=== PATIENT | male | born 1975 | race Caucasian/White ===

== ENCOUNTER 2017-03-31 09:06 | Day surgery (SDC) | payer BC ==
[~2017-03-31 09:06] MED LIST: Lactated Ringers 1,000 ML IV SCH; Midazolam 1 MG/ML 2 ML SDV ONE; Propofol 200 MG/20 ML SDV ONE; fentaNYL 100 MCG/2 ML SDV ONE
--- NOTE | 2017-03-31 09:28 | PCM.PREANE ---
Preanesthetic Assessment - Anesthesia/Transfusion/Family Hx Anesthesia History: Prior Anesthesia Without Reaction Family History of Anesthesia Reaction: No Transfusion History: No Prior Transfusion(s) Intubation History: Unknown - Review of Systems General: No Symptoms Pulmonary: No Symptoms Cardiovascular: No Symptoms Gastrointestinal: No Symptoms, Other (colonoscopy 8 years ago was normal) Neurological: No Symptoms Other: Reports: None - Physical Assessment O2 Sat by Pulse Oximetry: 95 Respiratory Rate: 16 Vital Signs: Last Vital Signs Temp 36.3 C 03/31/17 09:12 Pulse 76 03/31/17 09:12 Resp 16 03/31/17 09:12 BP 126/80 03/31/17 09:12 Pulse Ox 95 03/31/17 09:12 Height: 1.78 m Weight: 127.006 kg ASA Class: 2 Mental Status: Alert & Oriented x3 Airway Class: Mallampati = 2 Dentition: Reports: Normal Dentition, Broken Tooth/Teeth (small chip up front tooth) Thyro-Mental Finger Breadths: 3 Mouth Opening Finger Breadths: 2 ROM/Head Extension: Limited/Partial Lungs: Clear to Auscultation, Normal Respiratory Effort Cardiovascular: Regular Rate, Regular Rhythm - Allergies Allergies/Adverse Reactions: Allergies Allergy/AdvReac Type Severity Reaction Status Date / Time No Known Allergies Allergy Verified 03/28/17 11:59 - Blood Blood Available: No - Anesthesia Plan Pre-Op Medication Ordered: None - Acknowledgements Anesthesia Type Planned: MAC Pt an Appropriate Candidate for the Planned Anesthesia: Yes Alternatives and Risks of Anesthesia Discussed w Pt/Guardian: Yes Pt/Guardian Understands and Agrees with Anesthesia Plan: Yes PreAnesthesia Questionnaire HEENT History: Reports: Other (See Below) Other HEENT History: glasses Musculoskeletal History: Reports: Fracture Other Musculoskeletal History: hx fx collarbone Psychiatric History: Reports: Depression Endocrine/Metabolic History: Reports: Obesity/BMI 30+ (BMI 40.2) - Past Surgical History Head Surgeries/Procedures: Reports: None HEENT Surgical History: Reports: Adenoidectomy, Tonsillectomy GI Surgical History: Reports: Colonoscopy (8 years ago), Hernia, Abdominal ( umbilical with mesh) Other GI Surgeries/Procedures: hx umbilical hernia repair - SUBSTANCE USE Smoking Status *Q: Light Tobacco Smoker (4-5 cigarettes per day) Tobacco Use Within Last Twelve Months: Cigarettes Recreational Drug Use History: No - HOME MEDS Home Medications: Home Meds Clotrimazole/Betamethasone Dip [Lotrisone Cream] 1 applic TOP ASDIRECTED PRN [History] Venlafaxine [Venlafaxine HCl ER] 150 mg PO DAILY 03/28/17 [History] - CURRENT (IN HOUSE) MEDS Current Meds: Current Medications Lactated Ringer's (Ringers, Lactated) 1,000 mls @ 125 mls/hr IV ASDIRECTED PORFIRIO Last Admin: 03/31/17 09:16 Dose: 125 mls/hr Discontinued Medications Fentanyl (Sublimaze) Confirm Administered Dose 100 mcg .ROUTE .STK-MED ONE Stop: 03/31/17 07:06 Lidocaine HCl (Xylocaine-Mpf 1%) Confirm Administered Dose 5 ml .ROUTE .STK-MED ONE Stop: 03/31/17 07:06 Midazolam HCl (Versed 1 Mg/Ml) Confirm Administered Dose 2 mg .ROUTE .STK-MED ONE Stop: 03/31/17 07:06 Propofol (Diprivan 20 Ml) Confirm Administered Dose 200 mg .ROUTE .STK-MED ONE Stop: 03/31/17 07:06
[2017-03-31] MEDS ORDERED: Propofol 200 MG/20 ML SDV ONE (10:16)
--- NOTE | 2017-03-31 10:38 | PCM.OPNOTE ---
- General Post-Op/Procedure Note Date of Surgery/Procedure: 03/31/17 Operative Procedure(s): Colonoscopy with cold cecal and rectal polypectomies Pre Op Diagnosis: Family history of colon cancer Post-Op Diagnosis: Cecal and rectal polyps Anesthesia Technique: MAC (ASA II) Primary Surgeon: Yao Alan Condition: Good Free Text/Narrative:: Dictation [id number]. CPT CODE [id number]
[2017-03-31] MEDS ORDERED: Lactated Ringers 1,000 ML IV SCH (10:45)
--- NOTE | 2017-03-31 11:12 | OR ---
SURGEON: Yao Alan M.D. DATE OF PROCEDURE: 03/31/2017 OPERATION PERFORMED: Colonoscopy with cold cecal and cold rectal polypectomy. ANESTHESIA: MAC. ASA CLASSIFICATION: II. PREOPERATIVE DIAGNOSIS: Family history of colon cancer. POSTOPERATIVE DIAGNOSIS: Cecal and rectal polyps. DESCRIPTION OF PROCEDURE: The patient was taken to the endoscopy room, positioned on the endoscopy table in the left lateral decubitus position. Time-out was called for appropriate identification of the patient and procedure. Monitored anesthesia care was provided. The colonoscope was inserted into the rectum and advanced with minimal difficulty to the cecum. One small polyp was encountered in the cecum and removed with multiple bites of the cold biopsy forceps. The colonoscope was retroflexed to visualize the ascending colon from below then straightened and slowly withdrawn. The ascending colon, hepatic flexure, transverse colon, splenic flexure, descending colon, sigmoid colon showed no tumors, polyps, diverticula, or angiodysplastic changes. There was no evidence of inflammatory bowel disease. A second polyp was encountered in the rectum and removed with the cold biopsy forceps and sent for separate histologic analysis. The colonoscope was retroflexed in the rectum to visualize the anal orifice from above. No other tumors were seen and there were no acute hemorrhoidal changes. The colonoscope was then straightened, the rectum aspirated, and the colonoscope removed. The patient tolerated the procedure well and was taken to recovery room in stable condition. PRIMARY SURGEON: SECONDARY SURGEON: SLATE SPLITTING SUPERVISOR: REASON SLATE SPLITTING SUPERVISOR WAS NECESSARY: ROLE OF SLATE SPLITTING SUPERVISOR: RAQUEL FORD /[id number]
== END 2017-03-31 11:12 | disposition home or self-care (01) ==
LOC: MW.SDS 09:06
PROVIDERS: ATTEND Surgery
DX: Z12.11 Encounter for screening for malignant neoplasm of colon (principal); D12.0 Benign neoplasm of cecum; K62.1 Rectal polyp; Z80.0 Family history of malignant neoplasm of digestive organs; E66.9 Obesity, unspecified; Z68.41 Body mass index [BMI] 40.0-44.9, adult; Z79.899 Other long term (current) drug therapy; Z77.9 Other contact with and (suspected) exposures hazardous to health
CPT/HCPCS: 45380; 88305; J2250; J3010; J7120; 00810; J2704

== ENCOUNTER 2020-01-17 07:04 | Day surgery (SDC) | payer SELFPAY ==
[~2020-01-17 07:04] MED LIST changes: +Lidocaine 2% 5 ML SDV ONE
--- NOTE | 2020-01-17 07:43 | PCM.PREANE ---
Preanesthetic Assessment - Anesthesia/Transfusion/Family Hx Anesthesia History: Prior Anesthesia Without Reaction Family History of Anesthesia Reaction: No Transfusion History: No Prior Transfusion(s) Intubation History: Unknown - Review of Systems General: No Symptoms Pulmonary: No Symptoms Cardiovascular: No Symptoms Gastrointestinal: No Symptoms, Other (h/o cecal polyp and positive family h/o colon cancer) Neurological: No Symptoms Other: Reports: None - Physical Assessment Vital Signs: Last Vital Signs Temp 36.5 C 01/17/20 07:20 Pulse 52 L 01/17/20 07:20 Resp 16 01/17/20 07:20 BP 133/61 01/17/20 07:20 Pulse Ox 97 01/17/20 07:20 Height: 5 ft 10 in Weight: 127.913 kg ASA Class: 2 Mental Status: Alert & Oriented x3 Airway Class: Mallampati = 3 Dentition: Reports: Normal Dentition Thyro-Mental Finger Breadths: 3 Mouth Opening Finger Breadths: 2 ROM/Head Extension: Limited/Partial Lungs: Clear to Auscultation, Normal Respiratory Effort Cardiovascular: Regular Rate, Regular Rhythm - Allergies Allergies/Adverse Reactions: Allergies Allergy/AdvReac Type Severity Reaction Status Date / Time No Known Allergies Allergy Verified 01/13/20 11:13 - Blood Blood Available: No - Anesthesia Plan Pre-Op Medication Ordered: None - Acknowledgements Anesthesia Type Planned: MAC Pt an Appropriate Candidate for the Planned Anesthesia: Yes Alternatives and Risks of Anesthesia Discussed w Pt/Guardian: Yes Pt/Guardian Understands and Agrees with Anesthesia Plan: Yes PreAnesthesia Questionnaire HEENT History: Reports: Other (See Below) Other HEENT History: wears glasses/contacts Gastrointestinal History: Reports: Colon Polyp Musculoskeletal History: Reports: Fracture Other Musculoskeletal History: hx fx collarbone, h/o nondisplaced left thumb fx. Psychiatric History: Reports: Depression Endocrine/Metabolic History: Reports: Obesity/BMI 30+ - Past Surgical History Head Surgeries/Procedures: Reports: None HEENT Surgical History: Reports: Adenoidectomy, Tonsillectomy GI Surgical History: Reports: Colonoscopy (x2 , last one 3 years ago- cecal polyp), Hernia, Abdominal (umbilical), Hernia, Inguinal Other GI Surgeries/Procedures: hx of Unbilical Hernia repair - SUBSTANCE USE Smoking Status *Q: Light Tobacco Smoker Tobacco Use Within Last Twelve Months: Cigarettes, Snuff/Dip Recreational Drug Use History: No - HOME MEDS Home Medications: Home Meds FLUoxetine [PROzac] 0 mg PO BEDTIME 01/13/20 [History] - CURRENT (IN HOUSE) MEDS Current Meds: Current Medications Lactated Ringer's (Ringers, Lactated) 1,000 mls @ 125 mls/hr IV ASDIRECTED PORFIRIO Discontinued Medications Fentanyl (Sublimaze) Confirm Administered Dose 100 mcg .ROUTE .STK-MED ONE Stop: 01/17/20 07:03 Lidocaine (Xylocaine-Mpf 2%) Confirm Administered Dose 5 ml .ROUTE .STK-MED ONE Stop: 01/17/20 07:03 Midazolam HCl (Versed 1 Mg/Ml) Confirm Administered Dose 2 mg .ROUTE .STK-MED ONE Stop: 01/17/20 07:03 Propofol (Diprivan 20 Ml) Confirm Administered Dose 400 mg .ROUTE .STK-MED ONE Stop: 01/17/20 07:03
[2020-01-17] MEDS ORDERED: Glycopyrrolate 0.2 MG/ML SDV ONE (08:57)
[2020-01-17] MEDS ORDERED: Lactated Ringers 1,000 ML IV SCH (09:15)
--- NOTE | 2020-01-17 09:16 | PCM.OPNOTE ---
- General Post-Op/Procedure Note Date of Surgery/Procedure: 01/17/20 Operative Procedure(s): Colonoscopy Pre Op Diagnosis: Personal history of tubulovillous adenoma Post-Op Diagnosis: No evidence of neoplasia Anesthesia Technique: MAC (ASA II) Primary Surgeon: Yao Alan Condition: Good Free Text/Narrative:: DICTATION [id number] CPT CODE [id number]
--- NOTE | 2020-01-17 09:56 | OR ---
SURGEON: Yao Alan M.D. DATE OF PROCEDURE: 01/17/2020 OPERATION PERFORMED: Colonoscopy. PRIMARY SURGEON: Yao Alan M.D. ANESTHESIA: MAC [employer] CLASSIFICATION: II. PREOPERATIVE DIAGNOSIS: Personal history of colon polyps. POSTOPERATIVE DIAGNOSIS: No evidence of neoplasia. DESCRIPTION OF PROCEDURE: The patient was taken to the endoscopy room and positioned on the endoscopy table in the left lateral decubitus position. A time-out was called for appropriate identification of the patient and the procedure. Monitored anesthesia care was provided. The colonoscope was inserted into the rectum and advanced with minimal difficulty to the cecum. The cecum was identified by internal landmarks and external pressure. The colonoscope was retroflexed to visualize the ascending colon from below and then straightened and slowly withdrawn. The cecum, ascending colon, hepatic flexure, transverse colon, splenic flexure, descending colon, sigmoid colon, and rectum were very well visualized. No tumors, polyps, diverticula, or angiodysplastic changes were noted anywhere in the lower gastrointestinal tract. Once the colonoscope was withdrawn to the rectum, it was retroflexed to visualize the anal orifice from above. No tumors or polyps were seen. There were no acute hemorrhoidal changes. The colonoscope was then straightened, the rectum aspirated, and the colonoscope removed. The patient tolerated the procedure well and was taken to the recovery room in stable condition. RAQUEL / LILIANA /[id number]
--- NOTE | 2020-01-17 09:58 | PCM.POSTAN ---
POST ANESTHESIA ASSESSMENT - MENTAL STATUS Mental Status: Alert, Oriented - VITAL SIGNS Vital Signs: Last Vital Signs Temp 36.3 C 01/17/20 09:11 Pulse 82 01/17/20 09:35 Resp 13 01/17/20 09:35 BP 121/74 01/17/20 09:35 Pulse Ox 95 01/17/20 09:35 - RESPIRATORY Respiratory Status: Respiratory Rate WNL, Airway Patent, O2 Saturation Stable - CARDIOVASCULAR CV Status: Pulse Rate WNL, Blood Pressure Stable - GASTROINTESTINAL GI Status: No Symptoms - PAIN Pain Score: 0 - POST OP HYDRATION Hydration Status: Adequate & Stable - OBSERVATIONS Free Text/Narrative:: No anesthesia problems
--- NOTE | 2020-01-17 10:03 | PCM48HPAN ---
Post Anesthesia Note - EVALUATION WITHIN 48HRS OF ANESTHETIC Vital Signs in Normal Range: Yes Patient Participated in Evaluation: Yes Respiratory Function Stable: Yes Airway Patent: Yes Cardiovascular Function Stable: Yes Hydration Status Stable: Yes Pain Control Satisfactory: Yes Nausea and Vomiting Control Satisfactory: Yes Mental Status Recovered: Yes Vital Signs: Last Vital Signs Temp 36.3 C 01/17/20 09:11 Pulse 82 01/17/20 09:35 Resp 13 01/17/20 09:35 BP 121/74 01/17/20 09:35 Pulse Ox 95 01/17/20 09:35 - COMMENTS/OBSERVATIONS Free Text/Narrative:: No anesthesia problems
== END 2020-01-17 10:00 | disposition home or self-care (01) ==
LOC: MW.SDS 07:04
PROVIDERS: ATTEND Surgery
DX: Z12.11 Encounter for screening for malignant neoplasm of colon (principal); F32.9 Major depressive disorder, single episode, unspecified; F17.210 Nicotine dependence, cigarettes, uncomplicated; F10.11 Alcohol abuse, in remission; E66.01 Morbid (severe) obesity due to excess calories; Z68.41 Body mass index [BMI] 40.0-44.9, adult; Z86.010 Personal history of colon polyps; Z80.0 Family history of malignant neoplasm of digestive organs; Z98.890 Other specified postprocedural states
CPT/HCPCS: 45378; J2001; J2250; J2704; J3010; J3490; J7120; 00812